=== PATIENT | female | born 1975 | race African-American/Black ===

== ENCOUNTER 2016-10-29 13:25 | Day surgery (SDC) | payer OTHER ==
[2016-10-28 16:01] LABS: BASOPHILS 0.2 %; BASOPHILS ABSOLUTE 0.01 10/3/uL (0.0-0.16); EOSINOPHILS 3.9 %; EOSINOPHILS ABSOLUTE 0.26 10/3/uL (0.0-0.53); HEMATOCRIT 33.9 % (36.0-48.0); HEMOGLOBIN 11.2 g/dL (12.0-16.0); IMMATURE GRANULOCYTES 0.2 %; IMMATURE GRANULOCYTES ABSOLUTE 0.01 10/3/uL (0.0-0.11); LYMPHOCYTES 30.1 %; LYMPHOCYTES ABSOLUTE 1.99 10/3/uL (0.67-4.30); MEAN CORPUSCULAR HEMOGLOB 34.3 pg (26.0-34.0); MEAN CORPUSCULAR VOLUME 103.7 fL (80-100); MEAN PLATELET VOLUME 10.5 fL (9.2-13.0); MONOCYTES 5.9 %; MONOCYTES ABSOLUTE 0.39 10/3/uL (0.21-1.20); NEUTROPHILS 59.7 %; NEUTROPHILS ABSOLUTE 3.96 10/3/uL (2.02-8.40); PLATELET COUNT 290 10/3/uL (150-400); RBC DISTRIBUTION WIDTH 15.6 % (12.0-16.0); RED CELL COUNT 3.27 10/6/uL (4.0-5.6); WHITE BLOOD CELLS 6.6 10/3/uL (4.5-10.5)
[2016-10-28 16:02] LABS: MANUAL DIFF NO %
[2016-10-28 16:26] LABS: BUN (BLOOD UREA NITROGEN) 8 MG/DL (6-23); CHLORIDE, SERUM 101 MMOL/L (96-112); CO2 (CARBON DIOXIDE) 31 MMOL/L (24-34); CREATININE 0.68 MG/DL (0.55-1.02); GFR AFRICAN AMERICAN 128 ML/MIN (>=60); GFR NON AFRICAN AMERICAN 110 ML/MIN (>=60); GLUCOSE, SERUM 194 MG/DL (60-99); POTASSIUM, SERUM 4.4 MMOL/L (3.5-5.3); PREALBUMIN 13.1 MG/DL (17.0-43.0); SODIUM, SERUM 140 MMOL/L (135-148)
[2016-10-28 16:45] LABS: PROTIME (NOT ORD) 13.5 SEC (12.0-14.5)
--- NOTE | ~2016-10-29 | OP ---
Record Of Operation [facility] [address] [place]. [address] NAME: BRANDON BALBUENA : 79 STATUS : [facility]#: [id number] AGE: 41 ADM/REG DATE : 10/29/16 MR#: [id number] REPORT SERV DATE: 10/29/16 DICTATED BY: ARMANDO GAGE JR. DATE: 10/29/16 REPORT STATUS : Draft TRANSCRIBED BY: MIGUEL DATE: 10/29/16 DATE OF PROCEDURE: PROCEDURE: Excision of neoplastic lesion on the left side of the neck (7.5 cm) with layered closure defect (12 cm). PREOPERATIVE DIAGNOSIS: Ulcerated lesion of left side neck, neoplasm of uncertain potential. POSTOPERATIVE DIAGNOSIS: Ulcerated lesion of left side neck, neoplasm of uncertain potential. ANESTHESIA: General. INDICATIONS: The patient presented with a chronic lesion of the left side of the neck. It was ulcerated. There was a question of infection, was treated with antibiotics without resolution. Imaging showed with ulceration and excision was indicated for definitive diagnosis and treatment. FINDINGS: There was excised, measured 7.5 x 2.5 x 0.5. 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 PROCEDURE IN DETAIL: With adequate general anesthesia, the patient was placed in the supine position. The left side of the neck was prepped and draped sterilely. An elliptical incision was outlined which incorporated lesion completely, incision was made and deepened down through the platysma into the neck where the lesion was excised sharply from surrounding tissues. This specimen was submitted to Pathology for examination fresh with a sample also sent for cultures. Hemostasis was assured with electrocautery. The wound was closed with subcutaneous 3-0 Vicryl and cutaneous 4-0 nylon. A 15 Ceasar drain was left in defect and brought out was secured with a nylon suture. The patient left the operating room in satisfactory condition. ESTIMATED BLOOD LOSS: 30 mL. RUTH/MIGUEL Armando Gage Jr., M.D. / [id number] CC: Kaycee Lundberg Jr., M.D.
[~2016-10-29 13:25] MED LIST: BAC PO; NORCO1 TA1 PO
[2016-10-29 13:59] LABS: INTERNATIONAL NORMAL RATI 1.1 UNITS (-); PARTIAL THROMBO TIME 33.1 SEC (22.5-37.2); PROTIME (NOT ORD) 13.6 SEC (12.0-14.5)
== END 2016-10-29 20:01 | disposition home or self-care (01) ==
LOC: SDC 13:25
PROVIDERS: Specialist
PROC: 0WB60ZX Excision of Neck, Open Approach, Diagnostic (ICD-10-PCS; principal; 2016-10-29 15:00)
DX: C86.6 Primary cutaneous CD30-positive T-cell proliferations (principal); E66.01 Morbid (severe) obesity due to excess calories; G47.33 Obstructive sleep apnea (adult) (pediatric); J45.909 Unspecified asthma, uncomplicated; E11.9 Type 2 diabetes mellitus without complications; F41.0 Panic disorder [episodic paroxysmal anxiety]; F41.9 Anxiety disorder, unspecified; F32.9 Major depressive disorder, single episode, unspecified; K57.92 Diverticulitis of intestine, part unspecified, without perforation or abscess without bleeding; Z88.5 Allergy status to narcotic agent; Z88.1 Allergy status to other antibiotic agents; Z90.711 Acquired absence of uterus with remaining cervical stump; Z98.890 Other specified postprocedural states
CPT/HCPCS: 80048; 82962; 84134; 85025; 85610; 85730; 87070; 87075; 87077; 87102; 87186; 87205; 88304; 88305; 88331; 88333; 88341; 88342; A9270-GY; J1885; J2250; J2405; J2710; J3010

== ENCOUNTER 2017-01-04 06:39 | Day surgery (SDC) | payer OTHER ==
--- NOTE | ~2017-01-04 | OP ---
Record Of Operation [facility] [address] [place]. [address] NAME: BRANDON BALBUENA : 79 STATUS : [facility]#: [id number] AGE: 41 ADM/REG DATE : 01/04/17 MR#: [id number] REPORT SERV DATE: 01/04/17 DICTATED BY: ARMANDO GAGE JR. DATE: 01/04/17 REPORT STATUS : Draft TRANSCRIBED BY: MIGUEL DATE: 01/04/17 DATE OF PROCEDURE: 01/04/2017 SURGEON: Armando Gage M.D. PASSENGER SOLICITOR: Taylor Hernandez. PROCEDURE: Excisional biopsy of deep axillary lymph nodes left. PREOPERATIVE DIAGNOSIS: Cutaneous lymphoma, axillary lymphadenopathy. POSTOPERATIVE DIAGNOSIS: Cutaneous lymphoma, axillary lymphadenopathy. ANESTHESIA: General. INDICATIONS: The patient has had excision of a cutaneous lesion which did show lymphoma. Imaging does show some adenopathy, left greater than right axilla for size, and excisional biopsy is indicated for definitive staging information. FINDINGS: On x-rays of the left axilla, there are several slightly enlarged lymph nodes, one is anthracotic and one other has a slightly rubbery feel as is one other. These are excised. A portion of the rubbery node was submitted for cultures as well with final diagnosis deferred to permanent section. No significant findings were encountered. The bone marrow biopsy was confirmed by pathology and dictated separately. DESCRIPTION OF PROCEDURE: With adequate general anesthesia, the patient was placed in the supine position. The left axilla was prepped and draped sterilely. A curvilinear incision was made within the axilla incision, deepened down through the subcutaneous tissues. The deep fascia was divided. The deep axilla was entered. The nodes in question were identified, excised sharply from surrounding tissues. Bleeding was controlled with electrocautery and clips. The wound was then closed with deep 3-0 Vicryl, subcutaneous 3-0 Monocryl, and subcuticular Monocryl. A 15 Ceasar drain was left in the deep defect of the wound and brought to the inferior where it was secured with a nylon suture. Sterile dressings were applied. The patient was then turned for the bone marrow and this is dictated separately. RUTH/MIGUEL Armando Gage Jr., M.D. / [id number] Record Of Operation [facility] [address] [place] [address] NAME: BRANDON BALBUENA : 79 STATUS : [facility] PAT#: [id number] AGE: 41 ADM/REG DATE : 01/04/17 MR#: [id number] REPORT SERV DATE: 01/04/17 DICTATED BY: ARMANDO GAGE JR. DATE: 01/04/17 REPORT STATUS : Draft TRANSCRIBED BY: MIGUEL DATE: 01/04/17 CC: Kaycee Lundberg Jr., M.D.
[2017-01-04 07:09] LABS: BASOPHILS 0.1 %; BASOPHILS ABSOLUTE 0.01 10/3/uL (0.0-0.16); EOSINOPHILS 1.5 %; EOSINOPHILS ABSOLUTE 0.13 10/3/uL (0.0-0.53); HEMATOCRIT 36.3 % (36.0-48.0); HEMOGLOBIN 11.7 g/dL (12.0-16.0); IMMATURE GRANULOCYTES 0.2 %; IMMATURE GRANULOCYTES ABSOLUTE 0.02 10/3/uL (0.0-0.11); LYMPHOCYTES 35.2 %; LYMPHOCYTES ABSOLUTE 3.06 10/3/uL (0.67-4.30); MEAN CORPUS HGB CONC 32.2 g/dL (32.0-36.0); MEAN CORPUSCULAR HEMOGLOB 31.4 pg (26.0-34.0); MEAN PLATELET VOLUME 10.4 fL (9.2-13.0); MONOCYTES 7.6 %; MONOCYTES ABSOLUTE 0.66 10/3/uL (0.21-1.20); NEUTROPHILS 55.4 %; NEUTROPHILS ABSOLUTE 4.81 10/3/uL (2.02-8.40); PLATELET COUNT 326 10/3/uL (150-400); RBC DISTRIBUTION WIDTH 16.8 % (12.0-16.0); RED CELL COUNT 3.73 10/6/uL (4.0-5.6); WHITE BLOOD CELLS 8.7 10/3/uL (4.5-10.5)
[2017-01-04 07:13] LABS: MANUAL DIFF NO %; MEAN CORPUSCULAR VOLUME 97.3 fL (80-100)
[2017-01-04 07:27] LABS: A/G RATIO 0.6 (0.7-1.9); ALKALINE PHOSPHATASE 111 U/L (45-117); BUN (BLOOD UREA NITROGEN) 9 MG/DL (6-23); CALCIUM, SERUM 8.4 MG/DL (8.5-10.4); CHLORIDE, SERUM 103 MMOL/L (96-112); CO2 (CARBON DIOXIDE) 29 MMOL/L (24-34); CREATININE 0.77 MG/DL (0.55-1.02); GFR AFRICAN AMERICAN 113 ML/MIN (>=60); GFR NON AFRICAN AMERICAN 97 ML/MIN (>=60); GLOBULIN 5.2 G/DL (2.5-4.1); GLUCOSE, SERUM 183 MG/DL (60-99); POTASSIUM, SERUM 4.2 MMOL/L (3.5-5.3); SGOT(AST) 18 U/L (5-40); SGPT(ALT) 18 U/L (5-65); SODIUM, SERUM 140 MMOL/L (135-148); TOTAL BILIRUBIN 0.9 MG/DL (0-1.2); TOTAL PROTEIN 8.2 G/DL (6.0-8.5)
[2017-01-04 07:31] LABS: RETICULOCYTE COUNT 1.1 % (0.5-2.9); RETICULOCYTE COUNT ABSOLUTE 41.6 10/3/uL (20.2-119.8)
== END 2017-01-04 13:52 | disposition home or self-care (01) ==
LOC: SDC 06:39
PROVIDERS: Specialist
PROC: 07B60ZX Excision of Left Axillary Lymphatic, Open Approach, Diagnostic (ICD-10-PCS; principal; 2017-01-04 07:45)
DX: I88.9 Nonspecific lymphadenitis, unspecified (principal); Z85.72 Personal history of non-Hodgkin lymphomas; E11.9 Type 2 diabetes mellitus without complications; E66.01 Morbid (severe) obesity due to excess calories; J45.909 Unspecified asthma, uncomplicated; G47.33 Obstructive sleep apnea (adult) (pediatric); F41.9 Anxiety disorder, unspecified; Z99.89 Dependence on other enabling machines and devices; Z88.0 Allergy status to penicillin; Z88.1 Allergy status to other antibiotic agents; Z88.5 Allergy status to narcotic agent; Z79.2 Long term (current) use of antibiotics
CPT/HCPCS: 71010; 80053; 82962; 85025; 85045; 87070; 87075; 87205; 88305; 88307; 88313; 88333; 88341; 88342; 94660; J0330; J2250; J2270; J2370; J2405; J3010; J3370